=== PATIENT | female | born 1945 | race Caucasian/White ===

== ENCOUNTER 2018-08-21 11:18 | Emergency (ER) | payer MEDICARE ==
[~2018-08-21 11:18] MED LIST: Iopamidol 370 76% 100 ML VIAL ONE
[2018-08-21] MEDS ORDERED: Nitroglycerin 0.4 MG TAB (25 Tab Bottle) ONE (11:46)
[2018-08-21] MEDS ORDERED: Nitroglycerin 2% Ointment 1 INCH/1 GM Packet ONE (11:58)
[2018-08-21 12:18] LABS: #Basophils 0.1 thou/uL (0.0-0.2); #Eosinphils 0.1 thou/uL (0.0-0.7); #Lymphocytes 1.9 thou/uL (1.20-3.40); #Monocytes 0.8 thou/uL (0.11-0.59); #Neutrophils 10.4 thou/uL (1.40-6.50); %Basophils 0.5 % (0.0-1.0); %Eosinophils 0.8 % (0.0-10.0); %Lymphocytes 14.6 % (21.0-51.0); %Monocytes 5.9 % (0.0-10.0); %Neutrophils 78.2 % (42.0-75.0); Hemoglobin 15.9 g/dL (12.0-16.0); Mean Corpuscular HGB CONC 32.3 g/dL (32.0-36.0); Mean Corpuscular Hemoglobin 28.5 pg (27.0-31.0); Mean Corpuscular Volume 88.3 fL (78.0-98.0); Mean Platelet Volume 6.7 fL (7.4-10.4); Platelet Count 326 thou/uL (130-400); RBC Distribution Width 12.5 % (11.5-14.5); Red Blood Cell (RBC) Count 5.59 mill/uL (4.20-5.40); White Blood Cell (WBC) Count 13.3 thou/uL (4.8-10.8)
[2018-08-21 12:39] LABS: ALT (SGPT) 17 U/L (8-55); AST (SGOT) 16 U/L (5-34); Albumin 4.2 g/dL (3.4-4.8); Alkaline Phosphatase 95 U/L (40-150); Anion Gap 15 mmol/L (10-20); BUN (Urea Nitrogen) 17 mg/dL (9.8-20.1); Bilirubin, Total 0.4 mg/dL (0.2-1.2); CK (CPK) 65 U/L (29-168); Calc. Creatinine Clearance 0 mL/min (70-130); Calcium 9.7 mg/dL (7.8-10.44); Carbon Dioxide 25 mmol/L (23-31); Chloride 103 mmol/L (98-107); Estimated GFR-MDRD 72; Globulin 3.3 g/dL (2.4-3.5); Glucose 134 mg/dL (83-110); Potassium 4.3 mmol/L (3.5-5.1); Protein, Total 7.5 g/dL (6.0-8.3); Sodium 139 mmol/L (136-145)
[2018-08-21 12:41] LABS: CKMB 2.1 ng/mL (0-6.6); Troponin I 0.013 ng/mL (< 0.028)
--- NOTE | 2018-08-21 13:00 | RAD ---
CHEST 1 VIEW: Date: 08/21/18 HISTORY: Chest pain. COMPARISON: None. FINDINGS: Lungs are clear. No pneumothorax or effusion. Cardiac silhouette and mediastinal contours are within normal limits. IMPRESSION: No acute intrathoracic abnormality. POS: [facility]
--- NOTE | 2018-08-21 14:53 | CT ---
CTA CHEST WITH CONTRAST CTA ABDOMEN WITH CONTRAST: Date: 08/21/18 HISTORY: Chest pain. Shortness of breath. COMPARISON: Chest radiograph same date. FINDINGS: CT angiogram of chest performed after the intravenous administration of contrast. CT angiogram of abd omen also performed. 3D rendering provided. No evidence of aneurysmal dilatation of the aorta, nor of a dissection. No intramural hematoma. There is mild focal ectasia of the infrarenal abdominal aorta, although only measures up to 2.2 cm. Mild p rominence of the pulmonary trunk. No pericardial effusion. No mediastinal adenopathy. The liver, kidneys, spleen, and pancreas are all unremarkable. No retroperitoneal adenopathy. No thoracic spine compression fracture. Celiac trunk and superior mesenteric arteries are patent. There is some mass-like scarring in the right upper lobe at the apex. Mild central lobular emphysema. There is a nodular in the right upper lobe measuring up to 5.0 mm. Calcified granuloma right middle lobe. No displaced rib fracture. IMPRESSION: 1. No aneurysmal dilatation, intramural hematoma, or dissection. 2. 5.0 mm nodule right upper lobe. In a high risk patient, follow-up CT in 1 year is recommended. 3. Mass-like scarring in the right lung apex. POS: [facility]
== END 2018-08-21 14:02 | disposition short-term general hospital (02) ==
LOC: NAV ERS 11:18
DX: R07.2 Precordial pain (principal); K21.9 Gastro-esophageal reflux disease without esophagitis; F17.210 Nicotine dependence, cigarettes, uncomplicated; Z79.82 Long term (current) use of aspirin; Z79.899 Other long term (current) drug therapy
CPT/HCPCS: 71045; 71275; 80053; 82553; 84484; 85025; 93005

== ENCOUNTER 2018-10-08 12:16 | Outpatient (CLI) | payer MEDICARE ==
--- NOTE | 2018-10-08 13:43 | RAD ---
TWO VIEWS CHEST: Comparison: 08-21-18 History: Breathing issues, COPD. FINDINGS: Single view of the chest shows a normal sized cardiomediastinal silhouette with atherosclerotic calci fications in the aorta. There is a calcified granuloma projecting over the right thorax. There is no evidence of consolidation, mass, or pleural effusion. IMPRESSION: No evidence of acute cardiopulmonary disease. POS: [facility]
== END 2018-10-08 12:17 | disposition home or self-care (01) ==
LOC: NAV RAD 12:16
PROVIDERS: ATTEND Family Medicine
DX: J44.1 Chronic obstructive pulmonary disease with (acute) exacerbation (principal)
CPT/HCPCS: 71046

== ENCOUNTER 2018-12-29 15:27 | Emergency (ER) | payer MEDICARE ==
[2018-12-29] MEDS ORDERED: methylPREDNISolone Sod Succ/PF 125 MG/2 ML VIAL ONE (15:42)
[2018-12-29 15:58] LABS: #Basophils 0.1 thou/uL (0.0-0.2); #Eosinphils 0.5 thou/uL (0.0-0.7); #Lymphocytes 5.1 thou/uL (1.20-3.40); #Monocytes 1.7 thou/uL (0.11-0.59); #Neutrophils 6.5 thou/uL (1.40-6.50); %Eosinophils 3.9 % (0.0-10.0); %Lymphocytes 36.6 % (21.0-51.0); %Monocytes 12.2 % (0.0-10.0); %Neutrophils 46.2 % (42.0-75.0); Mean Corpuscular HGB CONC 31.6 g/dL (32.0-36.0); Mean Corpuscular Hemoglobin 28.1 pg (27.0-31.0); Mean Corpuscular Volume 88.8 fL (78.0-98.0); Mean Platelet Volume 6.5 fL (7.4-10.4); Platelet Count 362 thou/uL (130-400); RBC Distribution Width 12.6 % (11.5-14.5); Red Blood Cell (RBC) Count 5.34 mill/uL (4.20-5.40)
[2018-12-29] MEDS ORDERED: cefTRIAXone\\ROCEPHIN 1 GM VIAL ONE (16:04)
[2018-12-29 16:17] LABS: ALT (SGPT) 22 U/L (8-55); AST (SGOT) 29 U/L (5-34); Albumin 4.6 g/dL (3.4-4.8); Alkaline Phosphatase 127 U/L (40-150); Anion Gap 20 mmol/L (10-20); BUN (Urea Nitrogen) 23 mg/dL (9.8-20.1); Bilirubin, Total 0.6 mg/dL (0.2-1.2); Calc. Creatinine Clearance 0 mL/min (70-130); Calcium 9.9 mg/dL (7.8-10.44); Carbon Dioxide 23 mmol/L (23-31); Chloride 103 mmol/L (98-107); Estimated GFR-MDRD 50; Globulin 3.6 g/dL (2.4-3.5); Glucose 206 mg/dL (83-110); Potassium 4.4 mmol/L (3.5-5.1); Protein, Total 8.2 g/dL (6.0-8.3); Sodium 142 mmol/L (136-145)
--- NOTE | 2018-12-29 16:49 | RAD ---
CHEST 1 VIEW: Date: 12/29/18 HISTORY: Dyspnea. COMPARISON: 08/21/18, 10/08/18. FINDINGS: Normal cardiac silhouette. Pulmonary vessels are slightly prominent. Patchy interstitial opacities, w ithout consolidation or mass. Left lower lobe infiltrate and possible effusion suspected. No pneumoth orax. IMPRESSION: Correlate for volume overload/congestive heart failure. POS: [facility]
--- NOTE | 2018-12-29 17:12 | CT ---
CT PULMONARY ANGIOGRAM WITH IV CONTRAST AND 3D POSTPROCESSING: Date: 12/29/18 HISTORY: Dyspnea. FINDINGS: The peripheral branches of the pulmonary arterial vasculature is not satisfactorily evaluated due to inadequate opacification. No filling defects are seen in the central pulmonary arteries to suggest ce ntral pulmonary embolism. The thoracic aorta is well opacified without aneurysm or dissection. Vascul ar calcifications are present. No pleural or pericardial effusions are seen. There is a calcified gra nuloma in the right upper lobe. No pneumothoraces, lobar consolidation, or lung masses are identified . There is scarring at the lung apices. IMPRESSION: No CT evidence of central pulmonary embolism. POS: [facility]
== END 2018-12-29 17:59 | disposition short-term general hospital (02) ==
LOC: NAV ERS 15:27
DX: J44.1 Chronic obstructive pulmonary disease with (acute) exacerbation (principal); I50.9 Heart failure, unspecified; K21.9 Gastro-esophageal reflux disease without esophagitis; Z87.891 Personal history of nicotine dependence; Z79.899 Other long term (current) drug therapy; Z79.82 Long term (current) use of aspirin
CPT/HCPCS: 71045; 71275; 80053; 83605; 83880; 84484; 85025; 85379; 87040; 93005; 94640; 94760; 96374; 96375; J0696; J2930; J7620; Q9967

== ENCOUNTER 2021-08-16 17:31 | Inpatient (IN) | payer MEDICARE ==
[2021-08-16] MEDS ORDERED: Ondansetron ODT 4 MG TAB PO PRN (17:38)
[2021-08-16] MEDS ORDERED: Senokot S 8.6-50 MG TAB PO PRN (17:38)
[2021-08-16] MEDS ORDERED: Melatonin 3 MG TAB PO PRN (17:41)
[2021-08-16 17:44] VITALS: BMI 33.6
[2021-08-16] MEDS ORDERED: Albuterol Sulfate 2.5 mg/3 ml Neb NEB PRN (18:41)
[2021-08-16] MEDS ORDERED: FLU VACC QS2021-22(65YR UP)/PF 240 MCG/0.7 ML SYRINGE IM ONE (19:00)
[2021-08-16] MEDS: Atorvastatin Calcium 40 MG TAB PO SCH (20:41)
[2021-08-16] MEDS: Apixaban 5 MG TAB PO SCH (20:41)
[2021-08-16] MEDS: Carvedilol 6.25 MG TAB PO SCH (20:42)
[2021-08-17 06:43] LABS: #Basophils 0.1 thou/uL (0.0-0.2); #Lymphocytes 1.2 thou/uL (1.20-3.40); #Neutrophils 5.4 thou/uL (1.40-6.50); %Basophils 1.1 % (0.0-1.0); %Eosinophils 0.6 % (0.0-10.0); %Lymphocytes 15.5 % (21.0-51.0); %Monocytes 12.9 % (0.0-10.0); %Neutrophils 69.9 % (42.0-75.0); Hemoglobin 9.8 g/dL (12.0-16.0); Mean Corpuscular HGB CONC 32.2 g/dL (32.0-36.0); Mean Platelet Volume 6.2 fL (7.4-10.4); Platelet Count 527 thou/uL (130-400); RBC Distribution Width 14.3 % (11.5-14.5); Red Blood Cell (RBC) Count 3.49 mill/uL (4.20-5.40); White Blood Cell (WBC) Count 7.8 thou/uL (4.8-10.8)
[2021-08-17 06:57] LABS: Anion Gap 12 mmol/L (10-20); BUN (Urea Nitrogen) 13 mg/dL (9.8-20.1); Calc. Creatinine Clearance 83 mL/min (70-130); Calcium 8.7 mg/dL (7.8-10.44); Carbon Dioxide 27 mmol/L (23-31); Chloride 102 mmol/L (98-107); Glucose 80 mg/dL (83-110); Potassium 3.9 mmol/L (3.5-5.1); Sodium 137 mmol/L (136-145)
[2021-08-17] MEDS: Apixaban 5 MG TAB PO SCH ×2 (09:44→20:41)
[2021-08-17] MEDS: Carvedilol 6.25 MG TAB PO SCH ×2 (09:44→20:41)
[2021-08-17] MEDS: Aspirin 81 mg Enteric Coated Tablet PO SCH (09:44)
[2021-08-17] MEDS ORDERED: Sulfameth/Trimethoprim DS 800-160mg TAB PO SCH (11:45)
[2021-08-17] MEDS ORDERED: Lisinopril 20 MG TAB PO SCH (11:45)
[2021-08-17] MEDS: Atorvastatin Calcium 40 MG TAB PO SCH (20:41)
[2021-08-17] MEDS: Sulfameth/Trimethoprim DS 800-160mg TAB PO SCH (20:41)
[2021-08-18] MEDS: Aspirin 81 mg Enteric Coated Tablet PO SCH (08:11)
[2021-08-18] MEDS: Apixaban 5 MG TAB PO SCH ×2 (08:11→20:34)
[2021-08-18] MEDS: Lisinopril 20 MG TAB PO SCH (08:11)
[2021-08-18] MEDS: Carvedilol 6.25 MG TAB PO SCH ×2 (08:11→20:33)
[2021-08-18] MEDS: Sulfameth/Trimethoprim DS 800-160mg TAB PO SCH ×2 (08:11→20:33)
[2021-08-18] MEDS: SIMETH SSP PRN (18:57)
[2021-08-18] MEDS: [UNRECOGNIZED DRUG - OTHER] SSP PRN (18:57)
[2021-08-18] MEDS: DIPHENHYDRAMINE SSP PRN (18:57)
[2021-08-18] MEDS: AL HYDROX SSP PRN (18:57)
[2021-08-18] MEDS: MAG HYDROX SSP PRN (18:57)
[2021-08-18 20:16] LABS: SARS-CoV-2 PCR by NAA Not Detected (NotDetected)
[2021-08-18] MEDS: Atorvastatin Calcium 40 MG TAB PO SCH (20:33)
[2021-08-19] MEDS: Lisinopril 20 MG TAB PO SCH (08:37)
[2021-08-19] MEDS: Carvedilol 6.25 MG TAB PO SCH ×2 (08:37→21:03)
[2021-08-19] MEDS: Aspirin 81 mg Enteric Coated Tablet PO SCH (08:38)
[2021-08-19] MEDS: Sulfameth/Trimethoprim DS 800-160mg TAB PO SCH ×2 (08:38→21:04)
[2021-08-19] MEDS: Apixaban 5 MG TAB PO SCH ×2 (08:38→21:03)
[2021-08-19] MEDS: Acetaminophen 325 MG TAB PO PRN (08:47)
[2021-08-19] MEDS: AL HYDROX SSP PRN (11:43)
[2021-08-19] MEDS: SIMETH SSP PRN (11:43)
[2021-08-19] MEDS: MAG HYDROX SSP PRN (11:43)
[2021-08-19] MEDS: [UNRECOGNIZED DRUG - OTHER] SSP PRN (11:43)
[2021-08-19] MEDS: DIPHENHYDRAMINE SSP PRN (11:43)
[2021-08-19] MEDS: Atorvastatin Calcium 40 MG TAB PO SCH (21:04)
[2021-08-20] MEDS: Sulfameth/Trimethoprim DS 800-160mg TAB PO SCH ×2 (07:25→20:23)
[2021-08-20] MEDS: Apixaban 5 MG TAB PO SCH ×2 (07:25→20:23)
[2021-08-20] MEDS: Lisinopril 20 MG TAB PO SCH (07:26)
[2021-08-20] MEDS: Carvedilol 6.25 MG TAB PO SCH ×2 (07:26→20:22)
[2021-08-20] MEDS: Aspirin 81 mg Enteric Coated Tablet PO SCH ×2 (07:26→12:01)
[2021-08-20] MEDS: Atorvastatin Calcium 40 MG TAB PO SCH (20:22)
[2021-08-21] MEDS: Carvedilol 6.25 MG TAB PO SCH ×2 (08:56→20:22)
[2021-08-21] MEDS: Apixaban 5 MG TAB PO SCH ×2 (08:58→20:22)
[2021-08-21] MEDS: Lisinopril 20 MG TAB PO SCH (08:58)
[2021-08-21] MEDS: Aspirin 81 mg Enteric Coated Tablet PO SCH (08:58)
[2021-08-21] MEDS: [UNRECOGNIZED DRUG - OTHER] SSP PRN (09:01)
[2021-08-21] MEDS: DIPHENHYDRAMINE SSP PRN (09:01)
[2021-08-21] MEDS: SIMETH SSP PRN (09:01)
[2021-08-21] MEDS: AL HYDROX SSP PRN (09:01)
[2021-08-21] MEDS: MAG HYDROX SSP PRN (09:01)
[2021-08-21] MEDS: Atorvastatin Calcium 40 MG TAB PO SCH (20:22)
[2021-08-22] MEDS: Carvedilol 6.25 MG TAB PO SCH ×2 (08:19→20:33)
[2021-08-22] MEDS: Apixaban 5 MG TAB PO SCH ×2 (08:19→20:33)
[2021-08-22] MEDS: Aspirin 81 mg Enteric Coated Tablet PO SCH (08:19)
[2021-08-22] MEDS: Lisinopril 20 MG TAB PO SCH (08:21)
[2021-08-22] MEDS: Ondansetron ODT 4 MG TAB SL PRN ×2 (08:21→20:34)
[2021-08-22] MEDS: Acetaminophen 325 MG TAB PO PRN (09:21)
[2021-08-22] MEDS: Atorvastatin Calcium 40 MG TAB PO SCH (20:33)
[2021-08-23] MEDS: Acetaminophen 325 MG TAB PO PRN (06:45)
[2021-08-23 07:41] VITALS: BP 147/75; TEMP 98.1
[2021-08-23] MEDS: Apixaban 5 MG TAB PO SCH (08:16)
[2021-08-23] MEDS: Aspirin 81 mg Enteric Coated Tablet PO SCH (08:16)
[2021-08-23] MEDS: Lisinopril 20 MG TAB PO SCH (08:16)
[2021-08-23] MEDS: Carvedilol 6.25 MG TAB PO SCH (08:16)
== END 2021-08-23 11:00 | disposition home health service (06) | DRG 948 ==
LOC: NAV ACUTE 17:31
PROVIDERS: ADMIT Family Medicine; ATTEND Family Medicine
DX: R53.81 Other malaise (principal); N39.0 Urinary tract infection, site not specified; C79.51 Secondary malignant neoplasm of bone; I50.32 Chronic diastolic (congestive) heart failure; Z20.822 Contact with and (suspected) exposure to COVID-19; I95.1 Orthostatic hypotension; C50.912 Malignant neoplasm of unspecified site of left female breast; I65.21 Occlusion and stenosis of right carotid artery; R41.0 Disorientation, unspecified; C50.911 Malignant neoplasm of unspecified site of right female breast; E78.5 Hyperlipidemia, unspecified; I11.0 Hypertensive heart disease with heart failure; J44.9 Chronic obstructive pulmonary disease, unspecified; Z98.890 Other specified postprocedural states; Z87.891 Personal history of nicotine dependence; Z79.82 Long term (current) use of aspirin; Z79.01 Long term (current) use of anticoagulants; Z79.899 Other long term (current) drug therapy; Z86.79 Personal history of other diseases of the circulatory system
CPT/HCPCS: 36415; 36416; 80048; 85025; Q0162; U0003; U0005

== ENCOUNTER 2021-11-18 18:44 | Emergency (ER) | payer MEDICARE ==
[2021-11-18 20:48] LABS: #Basophils 0.1 thou/uL (0.0-0.2); #Lymphocytes 0.6 thou/uL (1.20-3.40); #Monocytes 0.1 thou/uL (0.11-0.59); #Neutrophils 2.4 thou/uL (1.40-6.50); %Basophils 1.9 % (0.0-1.0); %Eosinophils 0.5 % (0.0-10.0); %Lymphocytes 18.4 % (21.0-51.0); %Monocytes 3.3 % (0.0-10.0); %Neutrophils 75.9 % (42.0-75.0); Hemoglobin 9.5 g/dL (12.0-16.0); Mean Corpuscular HGB CONC 31.9 g/dL (32.0-36.0); Mean Corpuscular Volume 87.7 fL (78.0-98.0); Platelet Count 164 thou/uL (130-400); RBC Distribution Width 14.2 % (11.5-14.5); Red Blood Cell (RBC) Count 3.41 mill/uL (4.20-5.40); White Blood Cell (WBC) Count 3.1 thou/uL (4.8-10.8)
[2021-11-18 21:09] LABS: ALT (SGPT) 9 U/L (8-55); AST (SGOT) 16 U/L (5-34); Albumin 3.3 g/dL (3.4-4.8); Alkaline Phosphatase 81 U/L (40-110); Anion Gap 14 mmol/L (10-20); BUN (Urea Nitrogen) 17 mg/dL (9.8-20.1); Bilirubin, Total 0.8 mg/dL (0.2-1.2); Calc. Creatinine Clearance 0 mL/min (70-130); Calcium 8.7 mg/dL (7.8-10.44); Carbon Dioxide 24 mmol/L (23-31); Chloride 101 mmol/L (98-107); Globulin 3.2 g/dL (2.4-3.5); Glucose 142 mg/dL (83-110); Potassium 3.5 mmol/L (3.5-5.1); Protein, Total 6.5 g/dL (5.8-8.1); Sodium 135 mmol/L (136-145)
[2021-11-18] MEDS ORDERED: Sodium Chloride 0.9% 1,000 ML ONE (21:47)
[2021-11-18 22:04] LABS: Bilirubin Negative (Negative); Blood, Urine Small (Negative); Clarity Turbid (Clear); Glucose, Urine (Dipstick) Negative (Negative); Ketone, Urine Negative (Negative); Leukocyte Moderate (Negative); Nitrite Negative (Negative); Protein, Urine (Dipstick) > or equal to 300 mg/dL (Neg-Trace); Urobilinogen 0.2 mg/dL (Less than 2); WBC/HPF 21-50 HPF (0-3)
[2021-11-18 22:05] LABS: Bacteria/HPF 2+ HPF (None Seen)
== END 2021-11-19 00:20 | disposition home or self-care (01) ==
LOC: NAV ERS 18:44
DX: C50.911 Malignant neoplasm of unspecified site of right female breast (principal); C50.912 Malignant neoplasm of unspecified site of left female breast; I25.10 Atherosclerotic heart disease of native coronary artery without angina pectoris; I50.9 Heart failure, unspecified; J44.9 Chronic obstructive pulmonary disease, unspecified; K21.9 Gastro-esophageal reflux disease without esophagitis; E78.5 Hyperlipidemia, unspecified; Z87.891 Personal history of nicotine dependence; Z79.82 Long term (current) use of aspirin; Z79.899 Other long term (current) drug therapy
CPT/HCPCS: 71046; 71275; 80053; 81003; 81015; 84484; 85025; 85379; 93005; 94760; J7050; Q9967

== ENCOUNTER 2022-01-07 | Inpatient (IN) | payer MEDICARE | END 2022-01-28 10:37 | disposition home health service (06) | DRG 948 | PROVIDERS: ADMIT Family Medicine ==

== ENCOUNTER 2024-09-17 18:06 | Emergency (ER) | payer OTHER, MEDICAID ==
[2024-09-17] MEDS ORDERED: cefTRIAXone (ROCEPHIN) 2 GM VIAL ONE (18:29)
[2024-09-17] MEDS ORDERED: Azithromycin 500 MG VIAL ONE (18:58)
[2024-09-17 19:06] LABS: #Basophils 0.1 thou/uL (0.0-0.2); #Eosinophils 0.1 thou/uL (0.0-0.7); #Lymphocytes 0.6 thou/uL (1.20-3.40); #Monocytes 0.8 thou/uL (0.11-0.59); #Neutrophils 6.1 thou/uL (1.40-6.50); %Basophils 0.7 % (0.0-1.0); %Eosinophils 0.8 % (0.0-10.0); %Lymphocytes 8.4 % (21.0-51.0); Hematocrit 36.4 % (36.0-47.0); Mean Corpuscular Hemoglobin 27.8 pg (27.0-31.0); Mean Corpuscular Volume 84.4 fl (78.0-98.0); Mean Platelet Volume 6.5 fL (7.4-10.4); Platelet Count 296 10x3/uL (130-400); Red Blood Cell (RBC) Count 4.31 mill/uL (4.20-5.40); White Blood Cell (WBC) Count 7.6 10x3/uL (4.8-10.8)
[2024-09-17] MEDS ORDERED: Ipratropium/Albuterol 3 ML NEB ONE (19:07)
[2024-09-17] MEDS ORDERED: methylPREDNISolone Sod Succ/PF 125 MG/2 ML VIAL ONE (19:07)
[2024-09-17] MEDS ORDERED: Magnesium 2 GM/50 ML BAG (IN WATER) ONE (19:07)
[2024-09-17 19:21] LABS: INR-International Normal Ratio 1.1; Prothrombin Time 13.7 sec (12.0-14.7)
[2024-09-17 19:22] LABS: PTT 29.8 sec (22.9-36.1)
[2024-09-17 19:28] LABS: ALT (SGPT) 17 U/L (8-55); AST (SGOT) 18 U/L (5-34); Albumin 3.4 g/dL (3.4-4.8); Alkaline Phosphatase 94 U/L (40-110); Anion Gap 14 mmol/L (10-20); BUN (Urea Nitrogen) 17 mg/dL (9.8-20.1); Bilirubin, Total 0.4 mg/dL (0.2-1.2); Calc. Creatinine Clearance 0 mL/min (70-130); Calcium 9.2 mg/dL (7.8-10.44); Carbon Dioxide 27 mmol/L (23-31); Chloride 102 mmol/L (98-107); Estimated GFR 63; Globulin 4.5 g/dL (2.4-3.5); Glucose 134 mg/dL (83-110); Lipase 16 U/L (8-78); Potassium 4.1 mmol/L (3.5-5.1); Protein, Total 7.9 g/dL (5.8-8.1); Sodium 139 mmol/L (136-145)
[2024-09-17 19:34] LABS: Troponin I 0.015 ng/mL (< 0.028)
[2024-09-17] MEDS ORDERED: Albuterol 2.5 MG (0.5 mL) NEB ONE ×2 (20:42→20:44)
== END 2024-09-17 22:14 | disposition home or self-care (01) ==
LOC: NAV ERS 18:06
DX: J44.1 Chronic obstructive pulmonary disease with (acute) exacerbation (principal); E78.5 Hyperlipidemia, unspecified; I25.10 Atherosclerotic heart disease of native coronary artery without angina pectoris; I11.0 Hypertensive heart disease with heart failure; I50.9 Heart failure, unspecified; K21.9 Gastro-esophageal reflux disease without esophagitis; Z79.899 Other long term (current) drug therapy; Z87.891 Personal history of nicotine dependence
CPT/HCPCS: 71045; 71275; 80053; 83605; 83690; 83880; 84145; 84484; 85025; 85610; 85730; 87040; 87428; 93005; 96374; 96375; 99285; J0456; J0696; J2919; J3475; Q9967; J7611; J7620

== ENCOUNTER 2024-09-23 14:27 | Inpatient (IN) | payer OTHER, MEDICAID ==
[2024-09-23] MEDS ORDERED: Albuterol 2.5 MG (3 mL) NEB NEB PRN (15:09)
[2024-09-23] MEDS ORDERED: Ondansetron ODT 4 MG TAB SL PRN (15:10)
[2024-09-23] MEDS: Acetaminophen 325 MG TAB PO PRN (20:45)
[2024-09-23] MEDS: Mirtazapine 15 MG TAB PO SCH (20:47)
[2024-09-23] MEDS: Aspirin 81 mg Enteric Coated Tablet PO SCH (20:47)
[2024-09-23] MEDS: Carvedilol 6.25 MG TAB PO SCH (20:47)
[2024-09-23] MEDS: Atorvastatin Calcium 40 MG TAB PO SCH (20:50)
[2024-09-23] MEDS: guaiFENesin ER 600 MG TAB PO SCH (20:50)
[2024-09-23] MEDS: Mometasone 100 MCG/PUFF (1 INHALER) INH SCH (20:56)
[2024-09-23] MEDS ORDERED: Non-Formulary Item 1 EACH (Budesonide/Glycopyr/Formoterol [Breztri Aerosphere Inhaler] 10 INH SCH (21:00)
[2024-09-23] MEDS: Ipratropium/Albuterol 3 ML NEB NEB SCH (23:51)
[2024-09-24 05:25] LABS: #Basophils 0.1 thou/uL (0.0-0.2); #Eosinophils 0.1 thou/uL (0.0-0.7); #Lymphocytes 1.3 thou/uL (1.20-3.40); #Monocytes 0.7 thou/uL (0.11-0.59); #Neutrophils 7.9 thou/uL (1.40-6.50); %Basophils 0.9 % (0.0-1.0); %Eosinophils 0.7 % (0.0-10.0); %Lymphocytes 12.6 % (21.0-51.0); %Neutrophils 78.8 % (42.0-75.0); Hematocrit 40.2 % (36.0-47.0); Hemoglobin 12.5 g/dL (12.0-16.0); Mean Corpuscular HGB CONC 31.2 g/dL (32.0-36.0); Mean Corpuscular Hemoglobin 26.7 pg (27.0-31.0); Mean Corpuscular Volume 85.6 fl (78.0-98.0); Mean Platelet Volume 6.7 fL (7.4-10.4); Platelet Count 311 10x3/uL (130-400); RBC Distribution Width 14.9 % (11.5-14.5); Red Blood Cell (RBC) Count 4.69 mill/uL (4.20-5.40)
[2024-09-24 05:45] LABS: ALT (SGPT) 16 U/L (8-55); AST (SGOT) 14 U/L (5-34); Albumin 3.1 g/dL (3.4-4.8); Alkaline Phosphatase 68 U/L (40-110); Anion Gap 14 mmol/L (10-20); BUN (Urea Nitrogen) 29 mg/dL (9.8-20.1); Bilirubin, Total 0.3 mg/dL (0.2-1.2); Calc. Creatinine Clearance 83 mL/min (70-130); Calcium 8.7 mg/dL (7.8-10.44); Carbon Dioxide 32 mmol/L (23-31); Chloride 99 mmol/L (98-107); Estimated GFR 70; Globulin 3.6 g/dL (2.4-3.5); Glucose 110 mg/dL (83-110); Potassium 4.2 mmol/L (3.5-5.1); Protein, Total 6.7 g/dL (5.8-8.1); Sodium 141 mmol/L (136-145)
[2024-09-24] MEDS: Lisinopril 20 MG TAB PO SCH (08:18)
[2024-09-24] MEDS: Clopidogrel Bisulfate 75 MG TAB PO SCH (08:19)
[2024-09-24] MEDS: Pantoprazole DR 40 MG TAB PO SCH (08:19)
[2024-09-24] MEDS: Enoxaparin 40 MG (0.4 mL) SYRINGE SC SCH (08:20)
[2024-09-24] MEDS ORDERED: Acetaminophen 325 MG TAB PO PRN (09:38)
[2024-09-24] MEDS: FLU (Fluad Triv) TS24-25 (65UP)/MF59C/PF 45 MCG/0.5 ML Syringe IM ONE (11:04)
[2024-09-24] MEDS: Ibuprofen 200 MG TAB PO SCH (11:13)
[2024-09-24] MEDS: traMADol HCl 50 MG TAB PO PRN (11:55)
[2024-09-26 13:13] VITALS: BMI 37.3
[2024-09-27] MEDS: Senokot S 8.6-50 MG TAB PO PRN (09:35)
[2024-09-29] MEDS: Guaifenesin DM 100-10/5 ML UDCUP PO PRN (20:09)
[2024-09-30] MEDS: Fluticasone Propionate Nasal Spray 16 gm Bottle NASAL SCH (09:25)
[2024-09-30 19:57] VITALS: TEMP 98.1
[2024-10-01 03:13] VITALS: BMI 35.9
[2024-10-01 10:38] VITALS: BP 147/67
== END 2024-10-01 10:30 | disposition home or self-care (01) | DRG 945 ==
LOC: NAV ACUTE 18:58
PROVIDERS: ADMIT Family Medicine; ATTEND Family Medicine
PROC: F07Z9ZZ Gait Training/Functional Ambulation Treatment (ICD-10-PCS; principal; 2024-09-27)
DX: R53.81 Other malaise (principal); J96.21 Acute and chronic respiratory failure with hypoxia; I50.32 Chronic diastolic (congestive) heart failure; C79.51 Secondary malignant neoplasm of bone; J44.1 Chronic obstructive pulmonary disease with (acute) exacerbation; I11.0 Hypertensive heart disease with heart failure; C50.912 Malignant neoplasm of unspecified site of left female breast; C50.911 Malignant neoplasm of unspecified site of right female breast; Z79.82 Long term (current) use of aspirin; Z79.899 Other long term (current) drug therapy; Z79.02 Long term (current) use of antithrombotics/antiplatelets; Z66 Do not resuscitate; I89.0 Lymphedema, not elsewhere classified
CPT/HCPCS: 36415; 80053; 85025; 94640; J1650; J7620